=== PATIENT | female | born 1990 | race Hispanic/Latino ===

== ENCOUNTER 2016-05-06 13:46 | Emergency (ER) | payer OTHER ==
[~2016-05-06] VITALS: Ht 162.6 cm; Wt 65.8 kg
[~2016-05-06 13:46] MED LIST: FLEXERIL10 MG PO; IBUPROFEN800 MG PO
[2016-05-06 14:16] LABS: ABSOLUTE BASOPHIL COUNT 0 /CUMM (0.0-0.2); ABSOLUTE EOSINOPHIL COUNT 0.1 /CUMM (0.0-0.7); ABSOLUTE GRANULOCYTE CT 3.7 /CUMM (1.4-6.5); ABSOLUTE LYMPH COUNT 1.4 /CUMM (1.2-3.4); ABSOLUTE MONOCYTE COUNT 0.4 /CUMM (0.10-0.60); BASOPHIL % 0.4 % (0.0-2.0); EOSINOPHIL % 2.1 % (0-5); GRANULOCYTE % 64.7 % (42.2-75.2); HEMATOCRIT 40.5 % (37-47); MEAN CORPUSCULAR HGB 29.9 PG (27.0-31.0); MEAN CORPUSCULAR HGB CONC 34.2 G/DL (33.0-37.0); MEAN CORPUSCULAR VOLUME 87.6 FL (81.0-99.0); MEAN PLATELET VOLUME 8.9 FL (7.4-10.4); PLATELET COUNT 238 /CUMM (130-400); RBC DISTRIBUTION WIDTH 13.5 % (11.5-14.5); RED BLOOD CELL CT 4.62 /CUMM (4.20-5.40); WHITE BLOOD CELL COUNT 5.7 /CUMM (4.8-10.8)
--- NOTE | 2016-05-06 15:50 | ED GI/GU/ABDOMINAL COMPLAINT ---
History of Present Illness General Chief Complaint: Abdominal Pain/Flank Pain Stated Complaint: LOWER ABD PAIN Source: patient Exam Limitations: no limitations Vital Signs & Intake/Output Vital Signs & Intake/Output Vital Signs Date Time Temp Pulse Resp B/P Pulse O2 O2 Flow FiO2 Ox Delivery Rate 05/06 1853 97.0 78 18 109/72 97 Room Air 05/06 1402 98.0 108 20 131/92 95 Allergies Coded Allergies: NO KNOWN ALLERGIES (02/07/13) Reconcile Medications Cholecalciferol (Vitamin D3) (Vitamin D) 5,000 UNIT TABLET 1 TAB PO DAILY SUPPLEMENT (Reported) Doxycycline Hyclate (Vibramycin) 100 MG CAPSULE 1 CAP PO BID infection Ibuprofen 800 MG TABLET 1 TAB PO Q8 PRN PAIN Triage Note: LOWER ABD PAIN SINCE 230AM TODAY RADIATES UP INTO AREA BELOW RIB CAGE AND INTO LOWER BACK. DIZZY AROUND 0300, NO N/V/D. Triage Nurses Notes Reviewed? yes ? N Is pt currently ? No HPI: Patient is a 26-year-old female presents complaining of lower abdominal and pelvic pain. Pain onset at 2 AM this morning. Pain is a sharp pain is currently moderate, has been severe at times. Patient has not taken any medication for her symptoms. At approximately 3 AM this morning the pain radiated from the lower abdomen to the upper abdomen otherwise pain has been localized to the lower abdomen. Patient's last bowel movement was at approximately 3 AM this morning. Last menstrual period was approximately 2 weeks ago and normal. No history of pelvic infections. Patient denies dysuria, hematuria, fevers, chills, vomiting, vaginal bleeding, vaginal discharge. (BETTYE YOUNG) Past History Medical History Any Pertinent Medical History? see below for history Neurological: NONE EENT: NONE Cardiovascular: NONE Respiratory: NONE Gastrointestinal: NONE Hepatic: NONE Renal: NONE Musculoskeletal: chronic back pain Psychiatric: NONE Endocrine: NONE Blood Disorders: NONE Cancer(s): NONE Surgical History Surgical History: N Psychosocial History What is your primary language Sammarinese Family History Hx Contributory? No (BETTYE YOUNG) Review of Systems Review of Systems Constitutional: Denies: chills, fever. EENTM: Reports: no symptoms. Respiratory: Denies: cough, short of breath. Cardiovascular: Denies: chest pain. GI: Reports: see HPI. Genitourinary: Denies: discharge, dysuria. Musculoskeletal: Denies: back pain. Skin: Reports: no symptoms. Neurological/Psychological: Reports: no symptoms. Hematologic/Endocrine: Reports: no symptoms. Immunologic/Allergic: Reports: no symptoms. (BETTYE YOUNG) Physical Exam Physical Exam General Appearance: well developed/nourished, alert, awake Head: atraumatic, normal appearance Eyes: Bilateral: normal appearance, PERRL, EOMI. Ears, Nose, Throat, Mouth: hearing grossly normal, moist mucous membrane Neck: normal inspection, supple, full range of motion Respiratory: normal breath sounds, chest non-tender, no respiratory distress, lungs clear Cardiovascular: regular rate/rhythm Gastrointestinal: normal bowel sounds, soft, DIFFUSE PELVIC TENDERNESS. nEGATIVE mCbURNEY'S POINT TENDERNESS, NEGATIVE Espinoza SIGN. Pelvic: With MST Mariah present throughout: Mild white thin discharge from cervical os. No cervical motion tenderness. Left adnexal tenderness. Unable to palpate any masses or lesions. Back: normal inspection, normal range of motion, NO cva TENDERNESS Extremities: normal range of motion Neurologic/Psych: no motor/sensory deficits, awake, alert, oriented x 3, normal gait, normal mood/affect Skin: intact, normal color, warm/dry Core Measures ACS in differential dx? No Severe Sepsis Present: No Septic Shock Present: No (BETTYE YOUNG) Progress Differential Diagnosis: ectopic , intrauterine , ovarian torsion, PID/cervicitis, UTI/pyelo, OVARIAN CYST, UTERINE FIBROID Plan of Care: Orders Procedure Date/time Status TRICHOMONAS 05/06 183 Complete POTASSIUM HYDROXIDE (ALESSIO) 05/06 183 Complete GENITAL CULTURE 05/06 183 Active CHLAMYDIA-GC DNA PROBE 05/06 183 Active Add-on Test (ER Only) 05/06 1455 Active URINE 05/06 1422 Complete URINALYSIS 05/06 1404 Complete COMPREHENSIVE METABOLIC PANEL 05/06 1404 Complete CBC WITHOUT DIFFERENTIAL 05/06 1404 Complete Laboratory Tests 05/06/16 1422: Urine Color YEL, Urine Clarity CLEAR, Urine pH 7.0, Ur Specific [place] 1.010, Urine Protein NEG, Urine Ketones NEG, Urine Nitrite NEG, Urine Bilirubin NEG, Urine Urobilinogen 0.2, Ur Leukocyte Esterase NEG, Ur Microscopic EXAM NOT REQUIRED, Urine Hemoglobin NEG, Urine Glucose NEG, Urine Test NEGATIVE 05/06/16 1409: Anion Gap 13, Estimated GFR > 60, BUN/Creatinine Ratio 18.3, Glucose 85, Calcium 9.6, Total Bilirubin 0.8, AST 22, ALT 23, Alkaline Phosphatase 50, Total Protein 8.0, Albumin 4.8, Globulin 3.2, Albumin/Globulin Ratio 1.5, CBC w Diff NO MAN DIFF REQ, RBC 4.62, MCV 87.6, MCH 29.9, RDW 13.5, MPV 8.9, Gran % 64.7, Lymphocytes % 25.6, Monocytes % 7.2, Eosinophils % 2.1, Basophils % 0.4, Absolute Granulocytes 3.7, Absolute Lymphocytes 1.4, Absolute Monocytes 0.4, Absolute Eosinophils 0.1, Absolute Basophils 0, PUBS MCHC 34.2 Microbiology 05/06 1844 GENITAL: GC DNA Probe - RECD 05/06 1844 GENITAL: Chlamydia DNA Probe (ALICE) - RECD 05/06 1844 GENITAL: ALESSIO Preparation - COMP 05/06 1844 GENITAL: Trichomonas Preparation - COMP 05/06 1844 GENITAL: Genital Culture - RECD Patient declined pain medication on initial exam. 05/06/2016 6:56:06 PM: Discussed with Dr. Piña: Give patient a dose of ceftriaxone and start on doxycycline 100mg twice a day for 1 week. Have follow up with her automatic equipment technician or with her in the office next week. (BETTYE YOUNG) Initial ED EKG: none (BETTYE YOUNG) Departure Departure Time of Disposition: 1900 Disposition: HOME OR SELF CARE Condition: Stable Clinical Impression Primary Impression: Pelvic pain Secondary Impressions: Hydrosalpinx, Ovarian cyst Referrals: ADAMA LISA,REED Lucia (PCP/Family) FERNANDA PIÑA DO Additional Instructions: Follow-up with either your automatic equipment technician or with Dr. Piña(automatic equipment technician) early next week for further evaluation, call in the morning for appointment. Return to the emergency department if fevers, increasing pain, or worsening of symptoms. Departure Forms: Customer Survey General Discharge Information Prescriptions: Current Visit Scripts Doxycycline Hyclate (Vibramycin) 1 CAP PO BID #14 CAP Ibuprofen 1 TAB PO Q8 PRN PAIN #20 TAB (BETTYE YOUNG) PA/ACADEMIC ADVISOR Co-Sign Statement Statement: ED Attending supervision documentation- [] I saw and evaluated the patient. I have also reviewed all the pertinent lab results and diagnostic results. I agree with the findings and the plan of care as documented in the PA's/ACADEMIC ADVISOR's documentation. x I have reviewed the ED Record and agree with the PA's/ACADEMIC ADVISOR's documentation. [] Additions or exceptions (if any) to the PAs/ACADEMIC ADVISOR's note and plan are summarized below: [] (GUME LISA,IVETT)
[2016-05-06] MEDS ORDERED: VITAMIN D5000 UNIT PO (16:28)
--- NOTE | 2016-05-06 18:17 | ULTRASOUND REPORT ---
EXAMINATION: ULTRASOUND OF THE PELVIS CLINICAL INFORMATION: Pelvic pain. COMPARISON: None. TECHNIQUE: Transabdominal and transvaginal pelvic ultrasound. Doppler evaluation with spectral analysis performed. A transvaginal study was performed in addition to the transabdominal study which did not yield an adequate examination of the uterus and ovaries due to superimposed distended gas-filled loops of bowel. FINDINGS: The uterus is normal in size and appearance, measuring 6.4 x 3.7 x 4 cm longitudinally, anteroposteriorly and transversely. The endometrial stripe thickness is normal, measuring 0.9 cm in thickness. No focal myometrial mass is seen. The cervical length is normal measuring 2.4 cm. (900. Both ovaries are visualized. Right ovary is prominent, measuring 4.5 x 3.2 x 3.1 cm for a volume of 23.1 mL. There is a complex septated cyst which measures 3.2 x 2 x 2.1 cm. There is normal Doppler flow to the ovary. The left ovary measures 3.8 x 2 x 2.4 cm for a volume of 9.6 mL. There is normal Doppler flow. Separate from the ovary there is a heterogeneously hypoechoic adnexal mass which measures 3.5 x 1.7 x 5 cm. There is no Doppler flow. There is adjacent free fluid. This may represent a fallopian tube. IMPRESSION: Nonspecific masslike appearance in the left adnexa, separate from the ovary. This favors a prominent and heterogeneous fallopian tube, suggestive of hydrosalpinx/pyosalpinx, given the heterogeneous appearance. Free fluid is also present. Complex right ovarian cyst with septation. Given this constellation of findings, short-term follow-up is recommended to assess for change/resolution.
[2016-05-06 18:53] VITALS: BP 109/72
[2016-05-06] MEDS ORDERED: VIBRAMYCIN100 MG PO (19:01)
[2016-05-06] MEDS ORDERED: IBUPROFEN800 M1 PO (19:01)
== END 2016-05-06 19:37 ==
LOC: ERH 13:46
PROVIDERS: Emergency Medicine
DX: R10.2 Pelvic and perineal pain (principal); N70.11 Chronic salpingitis; N83.209 Unspecified ovarian cyst, unspecified side
CPT/HCPCS: 87070; 81003; 81025; 87491; 87591; 96372; J0696